=== PATIENT | female | born 1970 | race Caucasian/White ===

== ENCOUNTER 2016-09-24 14:58 | Observation (INO) ==
[2016-09-24 17:08] LABS: MANUAL DIFF NEEDED? NO
[2016-09-24 17:19] LABS: BASO% 3.1 % (0.0-0.8); EOS# 0.01 X1000 (0.0-0.7); EOS% 0.3 % (0.0-10.0); HEMATOCRIT 38.9 % (37.0-47.0); HEMOGLOBIN 13.6 g/dL (12.0-16.0); IMM GRAN# 0.02 X1000 (0.0-0.04); IMM GRAN% 0.6 % (0.0-0.5); LYMPH# 1.35 X1000 (1.2-3.4); LYMPH% 42.2 % (20.5-51.1); MCH 32.7 PG (27-31); MCV 93.5 FL (81-99); MONO# 0.31 X1000 (0.11-0.59); MONO% 9.7 % (1.7-9.3); MPV 8.8 FL (7.4-10.4); NEUT% 44.1 % (42.2-75.2); PLT 54 X1000 (130-400); RBC 4.16 XMIL (4.2-5.4)
[2016-09-24] MEDS ORDERED: MAGNESIUM SULFATE ONE (17:32)
[2016-09-24] MEDS ORDERED: THIAMINE ONE (17:32)
[2016-09-24] MEDS ORDERED: M.V.I.-12 ONE (17:33)
[2016-09-24] MEDS ORDERED: NS 1,000 ML ONE (17:33)
[2016-09-24] MEDS ORDERED: FOLIC ACID ONE (17:33)
[2016-09-24 17:38] LABS: AGAP 17; ALBUMIN 4.6 g/dL (3.5-5.0); ALKALINE PHOSPHATASE 122 U/L (32-104); BUN 4 mg/dL (8-22); CALCIUM 8.9 mg/dL (8.8-10.2); CHLORIDE 90 mmol/L (98-107); COSMO 264; GOT 554 U/L (10-30); GPT 146 U/L (10-36); MAGNESIUM 2.1 mg/dL (1.5-2.7); POTASSIUM 3.4 mmol/L (3.5-5.1); SODIUM 133 mmol/L (136-145); TCO2 27 mmol/L (25-35); TOTAL PROTEIN 7.5 g/dL (6.3-8.3)
--- NOTE | 2016-09-24 17:54 | PROVIDER DOCUMENTATION ---
This chart was entered by Shruthi Hutton Scribe, acting as scribe for Kev Mandujano MD. HPI-General Adult - General Source: patient, family - History of Present Illness -Gen Adult Nature of Presenting Problems: 46 yo F presents to the ER with complaint of alcoholism. Pt states she was an alcoholic for x6 years, relapsed this past week. States she has been drinking 2 bottles of wine daily for the past 6 days. Went to [place] earlier today to see about admission, said her alcohol level was .3 and they would not accept her. Per family, advised her to go to a hospital for treatment and then come back in the morning for a bed at [facility]. Pt is intoxicated upon arrival. <Kev Mandujano I - Last Filed: 09/24/16 17:53> - General Source: patient, family <Timbo Woodard - Last Filed: 09/24/16 20:04> - General Chief Complaint: General Adult Stated Complaint: "POSSIBLE ALCOHOL POISONING" Time Seen by Provider: 09/24/16 16:12 Allergies/Adverse Reactions: Patient Allergies Allergy/AdvReac Type Severity Reaction Status Date / Time No Known Allergies Allergy Verified 09/24/16 15:19 Home Medications: Home Medication List Medication Instructions Recorded Confirmed Last Taken Type NK [No Home Medications] 09/24/16 09/24/16 Unknown History Review of Systems - Adult - REVIEW OF SYSTEMS - ADULT Constitutional: denies: chills, fever Eyes: reports: no symptoms reported Ears, Nose, Mouth & Throat: reports: no symptoms reported Cardiovascular: denies: chest pain, palpitations Respiratory: denies: cough, shortness of breath Gastrointestinal: denies: diarrhea, nausea, vomiting Genitourinary: reports: no symptoms reported Musculoskeletal: reports: no symptoms reported Integumentary: reports: no symptoms reported Neurological: reports: no symptoms reported Psychiatric: reports: see HPI, alcohol/drug dependence Endocrine: reports: no symptoms reported Hematologic/Lymphatic: reports: no symptoms reported Allergic/Immunologic: reports: no symptoms reported All Other Systems: Reviewed and Negative <Kev Mandujano I - Last Filed: 09/24/16 17:53> - REVIEW OF SYSTEMS - ADULT Constitutional: denies: fever <Timbo Woodard - Last Filed: 09/24/16 20:04> Past History - Adult - PAST MEDICAL HISTORY-ADULT Review of Records: reports: Nursing Assessment Review, Medications Reviewed Psychiatric: reports: anxiety - PRIOR SURGERIES/PROCEDURES Surgical/Procedure History: reports: breast - IMMUNIZATION STATUS Childhood Immunizations: See Nurse Assessment Flu Vaccine: See Nurse Assessment <Kev Mandujano I - Last Filed: 09/24/16 17:53> - PAST MEDICAL HISTORY-ADULT Review of Records: reports: Old Records Reviewed, Nursing Assessment Review, Medications Reviewed, Social history reviewed & non-contributory. <Timbo Woodard - Last Filed: 09/24/16 20:04> Physical Exam-General - PHYSICAL EXAM-ADULT Initial Vital Signs Reviewed: Yes - CONSTITUTIONAL General Appearance: alert, other (intoxicated) - EYES Eyes: PERRL/EOMI, pink conjunctivae - HEAD, EARS, NOSE, MOUTH & THROAT HENMT: normocephalic/atraumatic, normal ENT inspection, TMs normal, pharynx normal - NECK Neck: supple, normal inspection - RESPIRATORY Respiratory: no respiratory distress, no accessory muscle use - CARDIOVASCULAR Cardiovascular: normal peripheral pulses, regular rate, rhythm - GASTROINTESTINAL (ABDOMEN) Abdominal Exam: normal bowel sounds, non tender, soft - MUSCULOSKELETAL Back Exam: no CVA tenderness, no vertebral tenderness Extremity: normal gait, normal inspection - SKIN Integumentary: normal color, warm/dry - NEUROLOGIC Neurologic: grossly normal, no motor/sensory deficits - PSYCHIATRIC Psych/Mental Status: normal mood/affect, normal thought content, normal thought process, oriented x 3 <Kev Mandujano I - Last Filed: 09/24/16 17:53> - PHYSICAL EXAM-ADULT Initial Vital Signs Reviewed: Yes - CONSTITUTIONAL General Appearance: lethargic <Timbo Woodard - Last Filed: 09/24/16 20:04> Progress - PLAN OF CARE/RESULTS Progress/Plan/Lab Results: Vital Signs - 8 hr 09/24/16 15:05 Temperature 98 F Pulse Rate 119 H Respiratory Rate 19 Blood Pressure 124/89 O2 Sat by Pulse Oximetry 97 Result Diagrams: 09/24/16 17:01 09/24/16 17:01 - CHANGE OF SHIFT REPORT (ED Provider) Report Given and Care Transferred to:: Dr. Woodard Time of Transfer: 18:00 Items Pending: Labs, Physician Consult/Arrival <Kev Mandujano I - Last Filed: 09/24/16 17:53> - PLAN OF CARE/RESULTS Progress/Plan/Lab Results: Vital Signs - 8 hr 09/24/16 15:05 09/24/16 16:00 09/24/16 17:00 Temperature 98 F Pulse Rate 119 H 101 H 97 H Respiratory Rate 19 11 L 18 Blood Pressure 124/89 118/96 111/90 O2 Sat by Pulse Oximetry 97 93 L 93 L 09/24/16 18:00 Temperature Pulse Rate 90 Respiratory Rate 14 Blood Pressure 103/86 O2 Sat by Pulse Oximetry 98 Laboratory Results - last 24 hr 09/24/16 09/24/16 09/24/16 17:01 17:01 17:01 WBC 3.20 L RBC 4.16 L Hgb 13.6 Hct 38.9 MCV 93.5 MCH 32.7 H MCHC 35.0 RDW Std Deviation 15.8 H Plt Count 54 L MPV 8.8 Immature Gran % (Auto) 0.6 H Neut % (Auto) 44.1 Lymph % (Auto) 42.2 [place] % (Auto) 9.7 H Eos % (Auto) 0.3 Baso % (Auto) 3.1 H Immature Gran # (Auto) 0.02 Neut # (Auto) 1.41 Lymph # (Auto) 1.35 [place] # (Auto) 0.31 Eos # (Auto) 0.01 Baso # (Auto) 0.10 Sodium 133 L Potassium 3.4 L Chloride 90 L Carbon Dioxide 27 Anion Gap 17 BUN 4 L Creatinine 0.4 L Estimated GFR/1.73 m2 > 60 BUN/Creatinine Ratio 10 Glucose 108 H Calculated Osmolality 264 Calcium 8.9 Magnesium 2.1 Total Bilirubin 1.20 H AST 554 H ALT 146 H Alkaline Phosphatase 122 H Ammonia Total Protein 7.5 Albumin 4.6 Globulin 3.0 Albumin/Globulin Ratio 2.0 Lipase Urine Opiates Screen Ur Oxycodone Screen Urine Methadone Screen Ur Barbituates Screen Ur Tricyclics Screen Ur Phencyclidine Scrn Ur Amphetamines Screen U Methamphetamines Scrn Urine MDMA Screen U Benzodiazepines Scrn Urine Cocaine Screen U Cannabinoids Screen Plasma/Serum Ethyl Alc 458 H* 09/24/16 09/24/16 09/24/16 17:01 18:40 19:08 WBC RBC Hgb Hct MCV MCH MCHC RDW Std Deviation Plt Count MPV Immature Gran % (Auto) Neut % (Auto) Lymph % (Auto) [place] % (Auto) Eos % (Auto) Baso % (Auto) Immature Gran # (Auto) Neut # (Auto) Lymph # (Auto) [place] # (Auto) Eos # (Auto) Baso # (Auto) Sodium Potassium Chloride Carbon Dioxide Anion Gap BUN Creatinine Estimated GFR/1.73 m2 BUN/Creatinine Ratio Glucose Calculated Osmolality Calcium Magnesium Total Bilirubin AST ALT Alkaline Phosphatase Ammonia 17 Total Protein Albumin Globulin Albumin/Globulin Ratio Lipase 139 H Urine Opiates Screen NONE DETECTED Ur Oxycodone Screen NONE DETECTED Urine Methadone Screen NONE DETECTED Ur Barbituates Screen NONE DETECTED Ur Tricyclics Screen NONE DETECTED Ur Phencyclidine Scrn NONE DETECTED Ur Amphetamines Screen NONE DETECTED U Methamphetamines Scrn NONE DETECTED Urine MDMA Screen NONE DETECTED U Benzodiazepines Scrn NONE DETECTED Urine Cocaine Screen NONE DETECTED U Cannabinoids Screen NONE DETECTED Plasma/Serum Ethyl Alc Orders Category Date Time Status Saline Loc DIRECTED Care 09/24/16 16:44 Active ALCOHOL BLOOD Stat Lab 09/24/16 17:01 Completed AMMONIA [CHEM] Stat Lab 09/24/16 18:40 Completed CBC WITH ELECTRONIC DIFF [HEME] Stat Lab 09/24/16 17:01 Completed COMPREHENSIVE METABOLIC PANEL [CHEM] Stat Lab 09/24/16 17:01 Completed LIPASE [CHEM] Stat Lab 09/24/16 17:01 Completed MAGNESIUM [CHEM] Stat Lab 09/24/16 17:01 Completed URINE DRUG SCREEN PL Stat Lab 09/24/16 19:08 Completed 0.9% Sodium Chloride Inj [Ns] 1,000 ml Med 09/24/16 17:33 Discontinued .ROUTE As Directed Folic Acid Med 09/24/16 17:33 Discontinued 50 mg .ROUTE .STK-MED ONE Lorazepam [Ativan] Med 09/24/16 20:00 Discontinued 1 mg PO NOW ONE Magnesium Sulfate Med 09/24/16 17:32 Discontinued 1 gm .ROUTE .STK-MED ONE Mvi [M.v.i.-12] Med 09/24/16 17:33 Discontinued 10 ml .ROUTE .STK-MED ONE Mvi [M.v.i.-12] 10 ml Med 09/25/16 09:00 Active Folic Acid 1 mg Magnesium Sulfate 1 gm Thiamine 100 mg 0.9% Sodium Chloride Inj [Ns] 1,000 ml IV DAILY Thiamine Med 09/24/16 17:32 Discontinued 200 mg .ROUTE .STK-MED ONE Pulse Oximetry Stat Oth 09/24/16 16:44 Active Result Diagrams: 09/24/16 17:01 09/24/16 17:01 - REASSESSMENT Reassessment #1 Time Reassessed: 20:01 (contacted [facility] who states they will re-evaluate admission when PARRIS is below 250. Given how high her initial PARRIS was will admit overnight pending placement at [facility]) Status: unchanged <Timbo Woodard - Last Filed: 09/24/16 20:04> Departure <Kev Mandujano I - Last Filed: 09/24/16 17:53> - Departure Date of Disposition Decision: 09/24/16 Time of Disposition Decision: 20:02 Certified Medical Emergency: Emergent - Critical Care Note This patient required my direct & personal management of CC.: No <Timbo Woodard - Last Filed: 09/24/16 20:04> - Departure DIAGNOSIS: Acute alcohol intoxication with alcoholism Qualifiers: Complication of substance-induced condition: uncomplicated Qualified Code(s): F10.220 - Alcohol dependence with intoxication, uncomplicated Disposition: ADMITTED INPATIENT 09 Condition: Fair Referrals and Follow-Ups: None,PCP [Primary Care Provider] - This chart was documented by the indicated scribe, (Shruthi Hutton Scribe) and accurately reflects the services I performed and decisions made by me, Kev Mandujano MD, as attested by the provider's signature.
[2016-09-24 19:29] LABS: UR AMPHETAMINES QUAL NONE DETECTED (NONE DETECT); UR BARBITUATES QUAL NONE DETECTED (NONE DETECT); UR BENZODIAZEPIN QUAL NONE DETECTED (NONE DETECT); UR CANNABINOIDS QUAL NONE DETECTED (NONE DETECT); UR COCAINE QUAL NONE DETECTED (NONE DETECT); UR MDMA QUAL NONE DETECTED (NONE DETECT); UR METHADONE QUAL NONE DETECTED (NONE DETECT); UR METHAMPHETAMINE QUAL NONE DETECTED (NONE DETECT); UR OPIATES QUAL NONE DETECTED (NONE DETECT); UR OXYCODONE QUAL NONE DETECTED (NONE DETECT); UR PCP QUAL NONE DETECTED (NONE DETECT); UR TCA QUAL NONE DETECTED (NONE DETECT)
[2016-09-24] MEDS ORDERED: ATIVAN PO ONE (20:00)
[2016-09-24] MEDS ORDERED: ZOFRAN IV PRN (20:05)
[2016-09-24] MEDS ORDERED: NS 1,000 ML IV SCH (22:00)
[2016-09-24] MEDS: ATIVAN IV PRN (22:30)
[2016-09-25 06:35] LABS: HEMATOCRIT 33.9 % (37.0-47.0); HEMOGLOBIN 11.9 g/dL (12.0-16.0); MCH 32.9 PG (27-31); MCHC 35.1 g/dL (33-37); MCV 93.6 FL (81-99); MPV 9.1 FL (7.4-10.4); RBC 3.62 XMIL (4.2-5.4)
[2016-09-25 06:45] LABS: AGAP 17; ALBUMIN 3.7 g/dL (3.5-5.0); ALKALINE PHOSPHATASE 101 U/L (32-104); BUN 5 mg/dL (8-22); CHLORIDE 98 mmol/L (98-107); COSMO 270; GOT 465 U/L (10-30); GPT 117 U/L (10-36); POTASSIUM 3.2 mmol/L (3.5-5.1); SODIUM 137 mmol/L (136-145); TCO2 22 mmol/L (25-35); TOTAL PROTEIN 6.1 g/dL (6.3-8.3)
[2016-09-25] MEDS ORDERED: M.V.I.-12 10 ML, FOLIC ACID 1 MG, MAGNESIUM SULFATE 1 GM, THIAMINE 100 MG in NS 1,000 ML IV SCH (09:00)
[2016-09-25] MEDS ORDERED: KLOR-CON PO ONE (10:34)
--- NOTE | 2016-09-25 11:08 | HISTORY AND PHYSICAL ---
PRESENTING COMPLAINT: Intoxication. PRIMARY CARE PHYSICIAN: None. HISTORY OF PRESENTING COMPLAINT: Ms. Rodriguez is a 46-year-old female, apparently healthy except for alcohol addiction. The patient has been in and out of multiple rehabs for alcohol. She came in this time because she has been drinking about 2 bottles of wine daily for the past 6 days. Went to [place] for admission but her alcohol level was extremely high so they advised her to come to the hospital for acute medical care and get her alcohol level below 250 before they would accept her there. The patient was subsequently admitted for medical care. PAST MEDICAL HISTORY: Unremarkable. PAST SURGICAL HISTORY: None. ALLERGIES: None. FAMILY HISTORY: Is unremarkable. SOCIAL HISTORY: The patient drinks about 2 bottles of wine on daily basis. Denies smoking. REVIEW OF SYSTEMS: A 14 point review of systems was conducted with the patient. It is unremarkable except that she does have some nausea and vomiting occasionally and excessive weakness PHYSICAL EXAM: VITALS: Her blood pressure is 103/76, pulse of 94, respiration is 17, temperature is 98.0 degrees. GENERAL: Ms. Rodriguez is a 46-year-old female. She is in bed, not seemingly distressed. HEENT: Mucosa is slightly dry. Anicteric. Acyanotic. NECK: Supple. CHEST: Good air entry bilaterally. No crepitations. No rhonchi. CARDIOVASCULAR: Regular rate and rhythm. ABDOMEN: Soft, nontender. There is no hepatosplenomegaly. EXTREMITIES: No pedal edema. Distal pulses are present. EXECUTIVE ADMINISTRATIVE ASSISTANT: Patient is now awake, alert, oriented x4. There is no focal neurological deficit. Executive function seems to be intact. Patient does not have any tremors. Cranial nerves 2-12 are grossly examined and they are unremarkable. LABORATORY DATA: WBC is 4.18, hemoglobin is 11.9, platelet count is 51,000. Chemistry: Sodium is 137, potassium is 3.2. Bicarb is 22, creatinine is 0.4. Total bilirubin is 1.40. AST down to 465. ALT is down to 117. Toxicology: The alcohol level was 458 on admission. It is down to 147 today. ASSESSMENT: 1. Alcohol intoxication. 2. Alcohol abuse. 3. Acute alcohol-induced hepatitis. 4. Thrombocytopenia likely due to alcohol effect. 5. Dehydration improving. 6. Hypokalemia. 7. Possible mineral deficiencies. 8. Protein calorie malnutrition. 9. Generalized weakness and deconditioning. So Ms. Rodriguez was actually admitted and has been adequately hydrated and we supplement her vitamin mineral deficiencies with banana bag. She is now going to be given some clear liquids. If she is able to tolerate it means we are going to discharge her to go back to [place] for her rehabilitation process to begin. The patient's serum ethanol level is now down to 147. [place] wanted it to below 250 before they would take her so I think she should be able to go. cc: Saul Benito MD
[2016-09-25] MEDS: ATIVAN IV PRN (12:06)
[2016-09-25] MEDS ORDERED: SEROQUEL PO ONE (12:39)
[2016-09-25] MEDS ORDERED: ATIVAN IV ONE (12:46)
[2016-09-25] MEDS ORDERED: KLOR-CON ONE (12:52)
[2016-09-25 14:48] VITALS: BP 115/70
[2016-09-26] MEDS ORDERED: THERA M PLUS PO SCH (09:00)
[2016-09-26] MEDS ORDERED: VITAMIN B-1 PO SCH (09:00)
--- NOTE | 2016-09-26 16:40 | DISCHARGE SUMMARY ---
ADMISSION DATE: 09/24/2016 DISCHARGE DATE: 09/25/2016 DISPOSITION: [facility] in [place] ADMISSION DIAGNOSES: 1. Alcohol intoxication. 2. Alcohol abuse. 3. Alcohol-induced hepatitis. 4. Thrombocytopenia likely due to alcohol suppression of the bone marrow. 5. Dehydration. 6. Possible mineral deficiencies. 7. Generalized weakness and deconditioning. DISCHARGE DIAGNOSES: 1. Alcohol abuse. 2. Altered mental status on presentation due to alcohol intoxication. 3. Alcohol-induced hepatitis. 4. Thrombocytopenia. 5. Clinical dehydration, improved. 6. Protein calorie malnutrition. PRESENTING COMPLAINT: Intoxication. HISTORY OF PRESENT ILLNESS: Ms. Rodriguez is a 46-year-old female, who was apparently healthy except for alcohol addiction. My understanding is that Ms. Rodriguez has been in and out of multiple rehab areas, but she has just not been consistent. She went to [facility] for voluntary admission; however, her serum alcohol level was over 300. They, therefore, advised her to come to the hospital for acute care and get the alcohol level below 250 before they would take her. Ms. Rodriguez was, therefore, admitted for just observation and medical care. HOSPITAL COURSE: She did pretty well and was treated in regular fashion with IV fluids, banana bag, minerals and vitamins were replaced and patient was maintained on low benzodiazepines. A repeat serum ethanol level the following day was 147. It was, therefore, deemed stable that Ms. Rodriguez shoulder be transferred to [facility] to continue with her rehabilitation process. She was subsequently discharged to [facility]. TIME SPENT FOR DISCHARGE: 38 minutes. cc: Saul Benito MD MTDD
== END 2016-09-25 13:35 | disposition home or self-care (01) ==
LOC: P.ED 14:58 → SUATTDRO 20:27 → INTOOBSV 20:27 → P.ICU 20:27
PROVIDERS: ATTEND Internal Medicine